=== PATIENT | male | born 1980 ===

== ENCOUNTER 2020-12-17 22:51 | Emergency (ER) | payer SELFPAY ==
[~2020-12-17] VITALS: Ht 182.9 cm; Wt 68.2 kg
[2020-12-17 23:05] VITALS: BP 136/88; Ht 182.9 cm; Wt 68.2 kg
== END 2020-12-17 23:15 | disposition home or self-care (01) ==
LOC: D.ER 22:51
DX: F10.129 Alcohol abuse with intoxication, unspecified (principal); F10.10 Alcohol abuse, uncomplicated